=== PATIENT | female | born 1980 | race Two or more races ===

== ENCOUNTER 2023-09-14 10:20 | Inpatient (IN) | payer OTHER ==
[2023-09-14] MEDS: ELECTROLYTE-148 SOLN 500 ML IV SCH ×2 (11:10→12:11)
[2023-09-14 11:20] VITALS: BMI 29.2
[2023-09-14] MEDS: CITRIC ACID/SODIUM CITRATE 30 ML UNIT-DOSE CUP PO ONE (12:11)
[2023-09-14] MEDS ORDERED: morphine SULFATE/PF 1 MG/2 ML (2cc Syringe - QUVA) ONE (13:32)
[2023-09-14] MEDS ORDERED: FENTANYL CITRATE/PF 50 MCG/ML VIAL ONE (13:32)
[2023-09-14] MEDS ORDERED: OXYTOCIN 10 UNITS/ML VIAL ONE (13:54)
[2023-09-14] MEDS ORDERED: KETAMINE HCL 200 MG/20 ML VIAL ONE (14:03)
[2023-09-14] MEDS ORDERED: MIDAZOLAM HCL 2 MG/2 ML SINGLE DOSE VIAL ONE (14:04)
[2023-09-14] MEDS ORDERED: IBUPROFEN 600 MG TABLET (FP) PO PRN (14:39)
[2023-09-14] MEDS ORDERED: ACETAMINOPHEN 325 MG TABLET (FP) PO PRN (14:39)
[2023-09-14] MEDS ORDERED: ONDANSETRON 4 MG/2 ML VIAL IVPUSH PRN (14:39)
[2023-09-14] MEDS ORDERED: METHYLERGONOVINE MALEATE 0.2 MG/1 ML AMP IM PRN (14:54)
[2023-09-14] MEDS ORDERED: SENNOSIDES/DOCUSATE COMBO (SENNA PLUS) TABLET (UD) PO PRN (14:54)
[2023-09-14] MEDS ORDERED: diphenhydrAMINE HCL 25 MG CAPSULE (FP) PO PRN (14:59)
[2023-09-14] MEDS: IBUPROFEN 800 MG/8 ML IJ IVPB PRN (15:30)
[2023-09-14 17:26] VITALS: RESP 18
[2023-09-14] MEDS: OXYTOCIN 20 UNITS in 0.9% NS 20 UNIT/1,000 ML INFUS.BAG IV SCH (20:00)
[2023-09-14] MEDS: URSODIOL 300 MG CAPSULE PO SCH (21:17)
[2023-09-14] MEDS: SIMETHICONE 80 MG TAB.CHEW (FP) PO PRN (21:17)
[2023-09-15] MEDS ORDERED: oxyCODONE HCL 5 MG TABLET PO PRN ×2 (02:54)
[2023-09-15] MEDS: ACETAMINOPHEN 325 MG TABLET (FP) PO PRN (06:11)
[2023-09-15 07:58] LABS: BASO % 0.3 % (0-2.0); EOS % 0.3 % (0-4.5); HEMATOCRIT 30.4 % (32.4-45.2); HEMOGLOBIN 9.9 GM/dL (10.7-15.3); LYMPH % 10.3 % (8-40); MCH 26.2 pg (25.7-33.7); MCHC 32.5 g/dl (32.0-36.0); MEAN CELL VOLUME 80.5 fl (80-96); MEAN PLT VOLUME 7.5 fl (7.5-11.1); MONO % 6.6 % (3.8-10.2); NEUT % 82.5 % (42.8-82.8); PLATELET COUNT 208 10^3/uL (134-434); RBC 3.78 M/mm3 (3.60-5.2); WHITE BLOOD COUNT 12.4 K/mm3 (4.0-10.0)
[2023-09-15] MEDS: IBUPROFEN 600 MG TABLET (FP) PO PRN (08:31)
[2023-09-15] MEDS: PRENATAL VITAMINS W/ FOLIC ACID TABLET (FP) PO SCH (10:40)
[2023-09-15] MEDS: FERROUS SO4 325 MG TABLET (FP) PO SCH (10:40)
[2023-09-15] MEDS ORDERED: BISACODYL 10 MG SUPP.RECT RC PRN (14:54)
[2023-09-17 09:55] VITALS: BP 116/74; PULSE 66; TEMP 98
== END 2023-09-17 11:10 | disposition home or self-care (01) | DRG 540 ==
LOC: JLDR 10:20 → J3W 17:15
PROVIDERS: ADMIT Obstetrics & Gynecology; ATTEND Obstetrics & Gynecology
PROC: 10D00Z1 Extraction of Products of Conception, Low, Open Approach (ICD-10-PCS; principal; 2023-09-14)
DX: O24.424 Gestational diabetes mellitus in childbirth, insulin controlled (principal); O26.643 Intrahepatic cholestasis of pregnancy, third trimester; O40.3XX0 Polyhydramnios, third trimester, not applicable or unspecified; Z37.0 Single live birth; E78.79 Other disorders of bile acid and cholesterol metabolism; K76.89 Other specified diseases of liver; O36.63X0 Maternal care for excessive fetal growth, third trimester, not applicable or unspecified; Z3A.37 37 weeks gestation of pregnancy
CPT/HCPCS: 36415; 82962; 85025; 88307-TC